=== PATIENT | female | born 1935 | race Caucasian/White ===

== ENCOUNTER 2017-08-05 11:24 | Inpatient (IN) | payer OTHER ==
[2017-08-05] MEDS ORDERED: SODIUM CHLORIDE 0.9% 1000ML 1,000 ML IV ONE (11:52)
[2017-08-05] MEDS ORDERED: ALBUTEROL NEB SOL 2.5MG/3ML 1 VIAL SOL NEB PRN (11:53)
[2017-08-05] MEDS: SODIUM CHLORIDE 0.9% FLUSH 10 ML SOL IV SCH ×2 (12:15→21:05)
[2017-08-05 13:16] LABS: BASOPHILS % (AUTO) 1 % (0-3); EOSINOPHILS % (AUTO) 1 % (0-9); HEMATOCRIT 33 % (35-47); MEAN CORPUSCULAR HGB CONC 34.4 gm/dl (32.0-36.0); MEAN CORPUSCULAR VOLUME 92 fL (81-99); MONOCYTES % (AUTO) 8.9 % (0-12); NEUTROPHILS % (AUTO) 77.2 % (37-80)
[2017-08-05] MEDS ORDERED: ACETAMINOPHEN 325 MG PO PRN (13:19)
[2017-08-05] MEDS: AZITHROMYCIN 250 MG TAB PO SCH (13:30)
[2017-08-05 13:44] LABS: ALBUMIN 3.4 gm/dl (3.4-5.0); POTASSIUM 4.2 mMol/L (3.5-5.1)
[2017-08-05] MEDS: CEFTRIAXONE 1 GM (PREMIX) 1 GM/50 ML SOL IV SCH (13:48)
[2017-08-05] MEDS: ACETAMINOPHEN 500 MG 500 MG TAB PO SCH ×2 (13:49→21:05)
[2017-08-05 13:53] LABS: CALCIUM 9.4 mg/dl (8.5-10.1)
[2017-08-05] MEDS: ALBUTEROL/IPRATROPIUM 1 VIAL SOL INH SCH ×3 (13:58→21:15)
[2017-08-05 15:16] LABS: APPEARANCE,URINE Slightly Cloudy; BILIRUBIN,URINE NEGATIVE (NEGATIVE); COLOR,URINE Yellow; GLUCOSE, URINE (UA) NEGATIVE (NEGATIVE); KETONES,URINE NEGATIVE (NEGATIVE); LEUKOCYTE ESTERASE ,URINE 3+ (NEGATIVE); NITRATE,URINE NEGATIVE (NEGATIVE); OCCULT BLOOD,URINE TRACE INTACT (NEG-TRACE); UROBILINOGEN,URINE 0.2 (0.2-1.0 EU)
[2017-08-05 15:31] LABS: WBC,URINE 40-45 (0-5AV/HPF)
[2017-08-05] MEDS: LEVOTHYROXINE SODIUM 88 MCG TAB PO SCH (21:05)
[2017-08-05] MEDS: BACLOFEN 10 MG TAB PO SCH (21:05)
[2017-08-05] MEDS: APAP/HYDROCODONE 325/5 TAB PO SCH (21:06)
[2017-08-06] MEDS: SODIUM CHLORIDE 0.9% FLUSH 10 ML SOL IV SCH ×7 (06:05→20:48)
[2017-08-06] MEDS: ACETAMINOPHEN 500 MG 500 MG TAB PO SCH ×3 (08:52→20:49)
[2017-08-06] MEDS: AZITHROMYCIN 250 MG TAB PO SCH (08:52)
[2017-08-06] MEDS: LORATADINE 10 MG TAB PO SCH (08:53)
[2017-08-06] MEDS: LISINOPRIL 5 MG TAB PO SCH (08:53)
[2017-08-06] MEDS: PANTOPRAZOLE SODIUM 40 MG ECT PO SCH (08:54)
[2017-08-06] MEDS: DILTIAZEM XR 180 MG C24 PO SCH (09:02)
[2017-08-06] MEDS: POLYETHYLENE GLYCOL 17 GM/1 TBS PDS PO SCH (09:02)
[2017-08-06] MEDS: ESCITALOPRAM 10 MG TAB PO SCH (09:02)
[2017-08-06] MEDS: ALBUTEROL/IPRATROPIUM 1 VIAL SOL INH SCH ×4 (09:14→20:52)
[2017-08-06] MEDS: SOLUMEDROL 125 MG/2 ML 125 MG/2 ML PDS IV SCH ×3 (10:16→22:49)
[2017-08-06] MEDS: CEFTRIAXONE 1 GM (PREMIX) 1 GM/50 ML SOL IV SCH (12:56)
[2017-08-06] MEDS: LEVOTHYROXINE SODIUM 88 MCG TAB PO SCH (20:48)
[2017-08-06] MEDS: APAP/HYDROCODONE 325/5 TAB PO SCH (20:49)
[2017-08-06] MEDS: BACLOFEN 10 MG TAB PO SCH (20:49)
[2017-08-07] MEDS: SOLUMEDROL 125 MG/2 ML 125 MG/2 ML PDS IV SCH (04:24)
[2017-08-07] MEDS: SODIUM CHLORIDE 0.9% FLUSH 10 ML SOL IV SCH ×3 (04:25→21:40)
[2017-08-07 07:26] LABS: BASOPHILS % (AUTO) 0 % (0-3); EOSINOPHILS % (AUTO) 0 % (0-9); HEMATOCRIT 31 % (35-47); MEAN CORPUSCULAR HGB CONC 34.9 gm/dl (32.0-36.0); MEAN CORPUSCULAR VOLUME 93 fL (81-99); MONOCYTES % (AUTO) 2.2 % (0-12); NEUTROPHILS % (AUTO) 85.6 % (37-80)
[2017-08-07 07:33] LABS: CALCIUM 8.8 mg/dl (8.5-10.1); POTASSIUM 4.1 mMol/L (3.5-5.1)
[2017-08-07] MEDS: PREDNISONE 20 MG TAB PO SCH (08:55)
[2017-08-07] MEDS: AZITHROMYCIN 250 MG TAB PO SCH (08:55)
[2017-08-07] MEDS: ACETAMINOPHEN 500 MG 500 MG TAB PO SCH ×3 (08:55→21:41)
[2017-08-07] MEDS: LISINOPRIL 5 MG TAB PO SCH (08:55)
[2017-08-07] MEDS: POLYETHYLENE GLYCOL 17 GM/1 TBS PDS PO SCH (08:56)
[2017-08-07] MEDS: PANTOPRAZOLE SODIUM 40 MG ECT PO SCH (08:56)
[2017-08-07] MEDS: ESCITALOPRAM 10 MG TAB PO SCH (08:56)
[2017-08-07] MEDS: LORATADINE 10 MG TAB PO SCH (08:57)
[2017-08-07] MEDS: DILTIAZEM XR 180 MG C24 PO SCH (08:57)
[2017-08-07] MEDS: ALBUTEROL/IPRATROPIUM 1 VIAL SOL INH SCH ×4 (09:04→21:42)
[2017-08-07] MEDS: CEFUROXIME 250 MG/5 ML PDR PO SCH ×2 (09:29→21:41)
[2017-08-07 21:16] VITALS: RESP 18
[2017-08-07] MEDS: BACLOFEN 10 MG TAB PO SCH (21:40)
[2017-08-07] MEDS: LEVOTHYROXINE SODIUM 88 MCG TAB PO SCH (21:41)
[2017-08-07] MEDS: APAP/HYDROCODONE 325/5 TAB PO SCH (21:47)
[2017-08-08] MEDS: SODIUM CHLORIDE 0.9% FLUSH 10 ML SOL IV SCH (05:36)
[2017-08-08 07:05] LABS: CALCIUM 8.7 mg/dl (8.5-10.1); POTASSIUM 4.3 mMol/L (3.5-5.1)
[2017-08-08 07:09] LABS: BASOPHILS % (AUTO) 0 % (0-3); EOSINOPHILS % (AUTO) 0 % (0-9); HEMATOCRIT 31 % (35-47); MEAN CORPUSCULAR HGB CONC 35.2 gm/dl (32.0-36.0); MEAN CORPUSCULAR VOLUME 92 fL (81-99); MONOCYTES % (AUTO) 6.6 % (0-12); NEUTROPHILS % (AUTO) 83.4 % (37-80)
[2017-08-08 07:46] VITALS: BP 153/91; PULSE 90; TEMP 97.7; O2SAT 93
[2017-08-08] MEDS: CEFUROXIME 250 MG/5 ML PDR PO SCH (08:25)
[2017-08-08] MEDS: DILTIAZEM XR 180 MG C24 PO SCH (08:26)
[2017-08-08] MEDS: AZITHROMYCIN 250 MG TAB PO SCH (08:27)
[2017-08-08] MEDS: ESCITALOPRAM 10 MG TAB PO SCH (08:27)
[2017-08-08] MEDS: LORATADINE 10 MG TAB PO SCH (08:28)
[2017-08-08] MEDS: LISINOPRIL 5 MG TAB PO SCH (08:28)
[2017-08-08] MEDS: PANTOPRAZOLE SODIUM 40 MG ECT PO SCH (08:28)
[2017-08-08] MEDS: POLYETHYLENE GLYCOL 17 GM/1 TBS PDS PO SCH (08:29)
[2017-08-08] MEDS: PREDNISONE 20 MG TAB PO SCH (08:31)
[2017-08-08] MEDS: ACETAMINOPHEN 500 MG 500 MG TAB PO SCH (08:31)
[2017-08-08] MEDS: ALBUTEROL/IPRATROPIUM 1 VIAL SOL INH SCH (09:03)
== END 2017-08-08 10:20 | DRG 191 ==
LOC: ACUTE CARE 12:28
PROVIDERS: ADMIT Family Medicine; ATTEND Family Medicine
PROC: F01ZDFZ Gait and/or Balance Assessment using Assistive, Adaptive, Supportive or Protective Equipment (ICD-10-PCS; principal; 2017-08-06)
PROC: F01ZCFZ Transfer Assessment using Assistive, Adaptive, Supportive or Protective Equipment (ICD-10-PCS; 2017-08-06)
DX: J44.1 Chronic obstructive pulmonary disease with (acute) exacerbation (principal); N30.00 Acute cystitis without hematuria; G35 Multiple sclerosis; F03.90 Unspecified dementia, unspecified severity, without behavioral disturbance, psychotic disturbance, mood disturbance, and anxiety; J20.9 Acute bronchitis, unspecified; J44.0 Chronic obstructive pulmonary disease with (acute) lower respiratory infection; Z87.891 Personal history of nicotine dependence; I10 Essential (primary) hypertension; E03.9 Hypothyroidism, unspecified; M17.10 Unilateral primary osteoarthritis, unspecified knee
CPT/HCPCS: 36415; 71010; 80048; 80053; 81001; 85025; 87040; 87088; 87804; 94150; 94640; 94664; 99070; J0696; J2930; J7620